=== PATIENT | female | born 1940 | race Caucasian/White ===

== ENCOUNTER 2023-01-27 14:48 | Outpatient (RCR) | payer MEDICARE ==
[~2023-01-27 14:48] MED LIST: CALCIUM 500 +1 EAC1 PO; COUMADIN4 MG PO; COUMADIN5 MG PO; COUMADIN6 MG PO; DIOVAN160 MG PO; FISH OIL 1,2001 EACH PO; IMDUR30 MG PO; MAXZIDE 37.5 M1 EACH PO; METHIMAZOLE10 MG PO; NISOLDIPINE34 MG PO; TENORMIN50 MG PO
== END 2023-02-23 ==
LOC: PT 14:48
PROVIDERS: ATTEND Physician Assistant
DX: S42.212A Unspecified displaced fracture of surgical neck of left humerus, initial encounter for closed fracture (principal)